=== PATIENT | female | born 1985 | race African-American/Black ===

== ENCOUNTER 2024-10-02 19:15 | Emergency (ER) | payer MEDICAID ==
[~2024-10-02] VITALS: Ht 170.2 cm; Wt 68.2 kg
[2024-10-02 19:22] VITALS: BP 119/68; PULSE 92; RESP 16; TEMP 98.2; O2SAT 97
== END 2024-10-02 19:55 | disposition left against medical advice (07) ==
LOC: EMS 19:16
DX: Z53.21 Procedure and treatment not carried out due to patient leaving prior to being seen by health care provider (principal)